=== PATIENT | female | born 1945 | race African-American/Black ===

== ENCOUNTER → 2017-11-19 | Outpatient (CLI) | payer MEDICARE ==
--- NOTE | 2017-11-19 12:34 | WOMENS IMAGING REPORT ---
EXAM DESCRIPTION: 3D SCREENING MAMMO BILAT COMPLETED DATE/TIME: 11/19/2017 10:08 am REASON FOR STUDY: ROUTINE SCREENING; Z12.31 Z12.31 ENCNTR SCREEN MAMMOGRAM FOR MALIGNANT NEOPLASM O F BRITTANEY COMPARISON: 2013 to 2015 TECHNIQUE: Standard craniocaudal and mediolateral oblique views of each breast recorded using digita l acquisition and breast tomosynthesis. LIMITATIONS: None. FINDINGS: No masses, calcifications or architectural distortion. No areas of suspicion. Read with the assistance of CAD. .[facility] - R2 Cenova Version 1.3 .[facility] - R2 Cenova Version 1.3 .[facility] - R2 Cenova Version 2.4 .[facility] - R2 Cenova Version 2.4 .[facility] - R2 Apparel Fashion Designer Version 9.2 IMPRESSION: NORMAL MAMMOGRAM. BIRADS 1. BREAST DENSITY: b. There are scattered areas of fibroglandular density. BIRAD: 1 NEGATIVE RECOMMENDATION: ROUTINE SCREENING COMMENT: The patient has been notified of the results by letter per SA requirements. Additional no tification policies are in place for contacting patient with suspicious or incomplete findings. Quality ID #[id number]: The [employer] recommends an annual screening mammogram for women aged 40 years or over. This facility utilizes a reminder system to ensure that all patients receive reminder letters, and/or direct phone calls for appointments. This includes reminders for routine scr eening mammograms, diagnostic mammograms, or other Breast Imaging Interventions when appropriate. Th is patient will be placed in the appropriate reminder system. The [employer] (ACR) has developed recommendations for screening MRI of the breast s in certain patient populations, to be used in conjunction with mammography. Breast MRI surveillanc e may be appropriate for women with more than 20% lifetime risk of developing breast cancer as deter mined by genetic testing, significant family history of the disease, or history of mantle radiation f or Hodgkins Disease. ACR Practice Guidelines 2008. DBT Technology DBT is a type of tomographic mammography. With conventional mammography, overlapping breast tissue ma y make lesions difficult to detect, even with good compression. DBT uses an x-ray tube that rotates a round the breast, taking images at different angles. These images are then combined to create thin sl ices of the breast that the radiologist can view as a 3D reconstruction. The [employer] unit can perform full-field digital mammograms (2D imaging); or DBT (3D imaging); or both, in a combination mode that quickly performs both the mammogram and the tomosynthesis scan while the breast is still compressed. PQRS 6045F: Fluoroscopic imaging is not utilized for breast tomosynthesis. TECHNICAL DOCUMENTATION: FINDING NUMBER: (1) ASSESSMENT: (1) JOB ID: [id number] [employer] - [employer]- All Rights Reserved
== END ==
LOC: WI 08:04
PROVIDERS: ATTEND Internal Medicine Geriatric Medicine
DX: Z12.31 Encounter for screening mammogram for malignant neoplasm of breast (principal)
CPT/HCPCS: 77063; G0202; 77067

== ENCOUNTER → 2018-12-05 | Outpatient (CLI) | payer MEDICARE, BC ==
--- NOTE | 2018-12-05 13:28 | WOMENS IMAGING REPORT ---
EXAM DESCRIPTION: 3D SCREENING MAMMO BILAT COMPLETED DATE/TIME: 12/05/2018 1:20 pm REASON FOR STUDY: ROUTINE BILATERAL SCREENING;Z12.31 Z12.31 ENCNTR SCREEN MAMMOGRAM FOR MALIGNANT N EOPLASM OF BRITTANEY COMPARISON: Multiple since 2013 TECHNIQUE: Standard craniocaudal and mediolateral oblique views of each breast recorded using digita l acquisition and breast tomosynthesis. LIMITATIONS: None. FINDINGS: No masses, calcifications or architectural distortion. No areas of suspicion. Read with the assistance of CAD. .[facility] - R2 Cenova Version 1.3 .[facility] Imaging - R2 Cenova Version 1.3 .[facility] - R2 Cenova Version 2.4 .[facility] [place] R2 Cenova Version 2.4 .[facility] - R2 Senior Automation Engineer Version 9.2 IMPRESSION: NORMAL MAMMOGRAM. BIRADS 1. BREAST DENSITY: b. There are scattered areas of fibroglandular density. BIRAD: 1 NEGATIVE RECOMMENDATION: ROUTINE SCREENING COMMENT: The patient has been notified of the results by letter per SA requirements. Additional no tification policies are in place for contacting patient with suspicious or incomplete findings. Quality ID #225: The [employer] recommends an annual screening mammogram for women aged 40 years or over. This facility utilizes a reminder system to ensure that all patients receive reminder letters, and/or direct phone calls for appointments. This includes reminders for routine scr eening mammograms, diagnostic mammograms, or other Breast Imaging Interventions when appropriate. Th is patient will be placed in the appropriate reminder system. The [employer] (ACR) has developed recommendations for screening MRI of the breast s in certain patient populations, to be used in conjunction with mammography. Breast MRI surveillanc e may be appropriate for women with more than 20% lifetime risk of developing breast cancer as deter mined by genetic testing, significant family history of the disease, or history of mantle radiation f or Hodgkins Disease. ACR Practice Guidelines 2008. DBT Technology DBT is a type of tomographic mammography. With conventional mammography, overlapping breast tissue ma y make lesions difficult to detect, even with good compression. DBT uses an x-ray tube that rotates a round the breast, taking images at different angles. These images are then combined to create thin sl ices of the breast that the radiologist can view as a 3D reconstruction. The [employer] unit can perform full-field digital mammograms (2D imaging); or DBT (3D imaging); or both, in a combination mode that quickly performs both the mammogram and the tomosynthesis scan while the breast is still compressed. PQRS 6045F: Fluoroscopic imaging is not utilized for breast tomosynthesis. TECHNICAL DOCUMENTATION: FINDING NUMBER: (1) ASSESSMENT: (1) JOB ID: [id number] [employer]- All Rights Reserved Reading location - IP/workstation name: [email or web address]
== END ==
LOC: WI 13:09
PROVIDERS: ATTEND Internal Medicine Geriatric Medicine
DX: Z12.31 Encounter for screening mammogram for malignant neoplasm of breast (principal)
CPT/HCPCS: 77063; 77067

== ENCOUNTER → 2020-01-11 | Outpatient (CLI) | payer MEDICARE, BC ==
--- NOTE | 2020-01-11 11:56 | WOMENS IMAGING REPORT ---
EXAM DESCRIPTION: 3D SCREENING MAMMO BILAT COMPLETED DATE/TIME: 01/11/2020 11:16 am REASON FOR STUDY: Z12.31 ENCOUNTER FOR SCREENING MAMMOGRAM FOR MALIGNANT NEOPLASM OF BREAST Z12.31 ENCNTR SCREEN MAMMOGRAM FOR MALIGNANT NEOPLASM OF BRITTANEY COMPARISON: 1016 TO 2019 EXAM PARAMETERS: Views: Standard craniocaudal and mediolateral oblique views of each breast recorded using digital acquisition and breast tomosynthesis. Read with the assistance of CAD. .[facility] - [employer] Manager Of Distribution Version 9.2 LIMITATIONS: None. FINDINGS: No suspicious masses, suspicious calcifications or architectural distortion. No areas of c oncern. IMPRESSION: NEGATIVE MAMMOGRAM. BIRADS 1. BREAST DENSITY: b. There are scattered areas of fibroglandular density. BIRAD: ASSESSMENT: 1 NEGATIVE RECOMMENDATION: ROUTINE SCREENING COMMENT: The patient has been notified of the results by letter per MQSA requirements. Additional no tification policies are in place for contacting patient with suspicious or incomplete findings. Quality ID #225: The [employer] recommends an annual screening mammogram for women aged 40 years or over. This facility utilizes a reminder system to ensure that all patients receive reminder letters, and/or direct phone calls for appointments. This includes reminders for routine scr eening mammograms, diagnostic mammograms, or other Breast Imaging Interventions when appropriate. Th is patient will be placed in the appropriate reminder system. TECHNICAL DOCUMENTATION: FINDING NUMBER: (1) ASSESSMENT: (1) JOB ID: [id number] 2010 [employer]- All Rights Reserved Reading location - IP/workstation name: [email or web address]
== END ==
LOC: WI 10:42
PROVIDERS: ATTEND Internal Medicine Geriatric Medicine
DX: Z12.31 Encounter for screening mammogram for malignant neoplasm of breast (principal)
CPT/HCPCS: 77063; 77067

== ENCOUNTER 2020-04-28 16:55 | Emergency (ER) | payer MEDICARE, BC ==
--- NOTE | 2020-04-28 18:08 | ER Document Report ---
HPI - HPI Patient complains to provider of: Yeast infection Time Seen by Provider: 04/28/20 17:14 Onset: Last week Onset/Duration: Persistent Quality of pain: Burning Pain Level: 2 Context: Patient complains of yeast infection to the perineum for the past week. Patient states she just finished a course of oral fluconazole for 5 days. Patient denies any improvement of her symptoms. Patient states she is diabetic and is compliant with her medications. Associated Symptoms: denies: Fever, Vomiting Exacerbated by: Movement Relieved by: Denies Similar symptoms previously: No Recently seen / treated by doctor: Yes - ROS ROS below otherwise negative: Yes Systems Reviewed and Negative: Yes All other systems reviewed and negative - CONSTITUTIONAL Constitutional: DENIES: Fever, Chills - NEURO Neurology: DENIES: Weakness - GASTROINTESTINAL Gastrointestinal: DENIES: Abdominal Pain, Nausea, Patient vomiting - DERM Skin Problems: Rash Past Medical History - General Information source: Patient - Social History Smoking Status: Former Smoker Frequency of alcohol use: None Drug Abuse: None Occupation: None Family History: Reviewed & Not Pertinent Patient has homicidal ideation: No - Past Medical History Cardiac Medical History: Reports: Hx Hypertension Endocrine Medical History: Reports: Hx Diabetes Mellitus Type 2 Past Surgical History: Reports: Hx Hysterectomy - partial - Immunizations Hx Diphtheria, Pertussis, Tetanus Vaccination: No Vertical Provider Document - CONSTITUTIONAL Agree With Documented VS: Yes Exam Limitations: No Limitations General Appearance: WD/WN, No Apparent Distress - INFECTION CONTROL TRAVEL OUTSIDE OF THE [place] IN LAST 30 DAYS: No - HEENT HEENT: Atraumatic, Normocephalic - NECK Neck: Normal Inspection, Supple - RESPIRATORY Respiratory: Breath Sounds Normal, No Respiratory Distress - CARDIOVASCULAR Cardiovascular: Regular Rate, Regular Rhythm - GI/ABDOMEN Gastrointestinal: Abdomen Soft, Abdomen Non-Tender, No Organomegaly - REPRODUCTIVE Female Genitalia: Abnormal Inspection - Patient with swelling to the vulva, skin mildly erythematous, areas of maceration to skin folds - BACK Back: Normal Inspection - MUSCULOSKELETAL/EXTREMETIES Musculoskeletal/Extremeties: EMELIA VILLAFUERTE - NEURO Level of Consciousness: Awake, Alert, Appropriate Motor/Sensory: No Motor Deficit - DERM Integumentary: Warm, Rash - Exudative, erythematous rash with areas of maceration to skin folds of perineum Course - Re-evaluation Re-evalutation: 04/28/20 Patient with yeast vaginitis. Discussed with patient importance of keeping area clean and dry. Patient also encouraged to obtain better control of her diab etes. Discussed diabetic diet. Patient encouraged to follow-up with her primary doctor tomorrow for recheck. Will place patient on a 2-week course of topical antifungal medication at this time. Good return precautions discussed with patient. - Vital Signs Vital signs: Temp Pulse Resp BP Pulse Ox 98.2 F 85 20 128/83 H 96 04/28/20 17:19 04/28/20 17:13 04/28/20 17:13 04/28/20 17:13 04/28/20 17:13 Discharge - Discharge Clinical Impression: Yeast vaginitis Condition: Stable Disposition: HOME, SELF-CARE Instructions: Vaginal Yeast Infection ([facility]) Additional Instructions: Return immediately for any new or worsening symptoms Followup with your primary care provider, call tomorrow to make a followup appointment Prescriptions: Clotrimazole 1 applic TOP DAILY #90 gm Referrals: IDAINA SHAW MD [Primary Care Provider] - Follow up tomorrow
[2020-04-28 18:15] VITALS: BP 127/86
== END 2020-04-28 18:20 | disposition home or self-care (01) ==
LOC: ER 16:55
DX: B37.3 Candidiasis of vulva and vagina (principal); I10 Essential (primary) hypertension; Z87.891 Personal history of nicotine dependence
CPT/HCPCS: 99283

== ENCOUNTER → 2020-06-12 | Outpatient (CLI) | payer BC, MEDICARE | LOC: WI 10:36 | PROVIDERS: ATTEND Nurse Practitioner Adult Health | DX: N63.20 Unspecified lump in the left breast, unspecified quadrant (principal) | CPT/HCPCS: 76642; 77065 ==

== ENCOUNTER → 2020-07-02 | Day surgery (SDC) | payer MEDICARE, BC ==
[~2020-07-02] MED LIST: LIDOCAINE 2% INJ (20 MG/ML) 20 ML MDV ONE
--- NOTE | 2020-07-11 10:04 | WOMENS IMAGING REPORT ---
EXAM DESCRIPTION: U/S BREAST BX IMAGES COMPLETED DATE/TIME: 07/10/2020 8:39 am REASON FOR STUDY: R92.8 OTH ABN AND INCONCLUSIVE FINDINGS ON DX IMAGING OF BREAST R92.8 OTH ABN AND INCONCLUSIVE FINDINGS ON DX IMAGING OF BRITTANEY COMPARISON: None. TECHNIQUE: The procedure was discussed with the patient and the patient agreed to proceed. The patient was scanned and the area of interest in the 7-8 o'clock position of the left breast was l ocalized. This correlates with the area of concern on prior imaging studies. This area was targeted for ultrasound-guided core biopsy. After sterile skin prep and 2.5 mL local lidocaine 1 % skin and deep tissue anesthesia, a 14 gauge co re biopsy needle was used to obtain several cores of tissue from the lesion. Under ultrasound guidan ce, a Barrel clip was placed in the areas sampled. There were no immediate post-procedure complicati ons. MAMMOGRAM: Post-procedure two view mammogram was not acquired due to equipment malfunction. No signif icant hematoma. Pathology yields a diagnosis of poorly differentiated carcinoma with differential metastatic lung, me tastatic thyroid, or rare breast primary. Final pathology is pending. Pathology is concordant. LIMITATIONS: None. FINDINGS: Ultrasound guided breast biopsy as described above. POST PROCEDURE MAMMOGRAMS FOR MARKER PLACEMENT: No IMPRESSION: ULTRASOUND-GUIDED CORE BIOPSY OF THE LEFT BREAST YIELDS A DIAGNOSIS OF POORLY DIFFERENTI ATED CARCINOMA. COMMENT: SURGICAL CONSULTATION IS RECOMMENDED. The findings were sent to the Radiology Results Communication Center at 09:56 on 07/11/2020 to be com municated to a licensed caregiver. COMMUNICATION: The patient's provider has been notified of the findings. The provider will discuss th e findings with the patient. Patient medication list reviewed: Yes- Quality ID# [id number]:Eligible professional attests to documenting i n the medical record they obtained, updated, or reviewed the patient's current medications. TECHNICAL DOCUMENTATION: JOB ID: [id number] 2010 [email or web address]- All Rights Reserved Reading location - IP/workstation name: [email or web address]
== END ==
LOC: WI 12:25
PROVIDERS: ATTEND Nurse Practitioner Adult Health
DX: C50.912 Malignant neoplasm of unspecified site of left female breast (principal); R92.8 Other abnormal and inconclusive findings on diagnostic imaging of breast
CPT/HCPCS: 88342 ×2; 88341 ×2; 88305 ×2; 19083; J3490

== ENCOUNTER → 2020-07-17 | Outpatient (CLI) | payer BC, MEDICARE | LOC: RAD 09:41 | PROVIDERS: ATTEND Internal Medicine | DX: N63.20 Unspecified lump in the left breast, unspecified quadrant (principal) | CPT/HCPCS: 82565; A9576; C8908; 77049 ==

== ENCOUNTER → 2020-07-26 | Outpatient (CLI) | payer MEDICARE ==
--- NOTE | 2020-07-27 11:38 | RADIOLOGY REPORT (SQ) ---
EXAM DESCRIPTION: CT CHEST WITH IMAGES COMPLETED DATE/TIME: 07/26/2020 3:35 pm REASON FOR STUDY: C50.312 MALIG NEOPLASM OF LOWER-INNER QUADRANT OF LEFT FEMALE BREAST C50.312 RACHEL G NEOPLASM OF LOWER-INNER QUADRANT OF LEFT FEMAL COMPARISON: Breast MRI 07/17/2020 TECHNIQUE: CT scan of the chest performed using helical scanning technique with dynamic intravenous contrast injection. Images reviewed with lung, soft tissue and bone windows. Reconstructed coronal and sagittal MPR and MIP images reviewed. All images stored on PACS. All CT scanners at this facility use dose modulation, iterative reconstruction, and/or weight based d osing when appropriate to reduce radiation dose to as low as reasonably achievable (ALARA). [facility]: Dose Right [facility]: CareDose [facility]: Dose Right [facility]: Teradose 4D [facility]: [employer] CONTRAST TYPE AND DOSE: contrast/concentration: Isovue 350.00 mmol/ml; Total Contrast Delivered: 79. 9 ml; Total Saline Delivered: 55.0 ml RENAL FUNCTION: Creatinine 0.7 RADIATION DOSE: CT Rad equipment meets quality standard of care and radiation dose reduction techniq ues were employed. CTDIvol: 11.6 mGy. DLP: 491 mGy-cm. . LIMITATIONS: None. FINDINGS: LUNGS AND PLEURA: No opacities, nodules, masses. No pneumothorax. No effusions. HILAR AND MEDIASTINAL STRUCTURES: No identified masses or abnormal nodes. HEART AND VASCULAR STRUCTURES: No aneurysm or dissection. No central pulmonary emboli. No pericardi al effusion. Aortic valve calcification. Prominent central pulmonary arteries HARDWARE: None in the chest. UPPER ABDOMEN: 13 mm nodule in the spleen axial image 59, may represent a small hemangioma. Small hi atal hernia THYROID AND OTHER SOFT TISSUES: No masses. No adenopathy. BONES: No significant finding. OTHER: 2.4 cm breast mass with clip along the medial aspect inframammary fold on coronal images 21-24 . IMPRESSION: Malignant left breast mass. Thyromegaly Otherwise unremarkable CT chest TECHNICAL DOCUMENTATION: JOB ID: [id number] Quality ID # [id number]: Final reports with documentation of one or more dose reduction techniques (e.g., Au tomated exposure control, adjustment of the mA and/or kV according to patient size, use of iterative reconstruction technique) 2010 [employer]- All Rights Reserved Reading location - IP/workstation name: [email or web address]
== END ==
LOC: RAD 14:03
PROVIDERS: ATTEND Internal Medicine
DX: C50.312 Malignant neoplasm of lower-inner quadrant of left female breast (principal); E01.0 Iodine-deficiency related diffuse (endemic) goiter
CPT/HCPCS: 71260

== ENCOUNTER 2020-08-28 10:06 | Day surgery (SDC) | payer MEDICARE, BC, OTHER ==
[2020-08-23 11:44] LABS: HEMATOCRIT 39.8 % (36.0-47.0); HEMOGLOBIN 13.6 g/dL (12.0-15.5); MEAN CORPUSCULAR HGB CONC 34.1 g/dL (32.0-36.0); MEAN CORPUSCULAR VOLUME 88 fl (80-97); PLATELET COUNT 254 10^3/uL (150-450); RED BLOOD COUNT 4.53 10^6/uL (3.72-5.28); RED CELL DISTRIBUTION WIDTH 13.1 % (11.5-14.0); WHITE BLOOD COUNT 5.8 10^3/uL (4.0-10.5)
[2020-08-23 11:54] LABS: ANION GAP 9 (5-19); BLOOD UREA NITROGEN 17 mg/dL (7-20); CALCIUM 9.8 mg/dL (8.4-10.2); CARBON DIOXIDE 28 mmol/L (22-30); CHLORIDE 100 mmol/L (98-107); GLUCOSE 341 mg/dL (75-110); POTASSIUM 4.5 mmol/L (3.6-5.0)
--- NOTE | 2020-08-23 21:17 | EKG REPORT ---
SEVERITY:- ABNORMAL ECG - SINUS RHYTHM FIRST DEGREE AV BLOCK PROBABLE LEFT ATRIAL ABNORMALITY LEFT ANTERIOR FASCICULAR BLOCK PROBABLE LEFT VENTRICULAR HYPERTROPHY CONSIDER ANTERIOR INFARCT : Confirmed by: Alina Patel MD 23-Aug-2020 21:16:52
[~2020-08-28 10:06] MED LIST changes: +LACTATED RINGERS 1000 ML IV PRN; +LIDOCAINE 0.5% INJ-PF (5 MG/ML) 50 ML SDV SUBCUT PRN; -LIDOCAINE 2% INJ (20 MG/ML) 20 ML MDV ONE
[2020-08-28] MEDS ORDERED: LIDOCAINE 4% CREAM 5 GM TUBE ONE (10:22)
[2020-08-28] MEDS ORDERED: METHYLENE BLUE 50 MG/10 ML AMPULE ONE (13:12)
[2020-08-28] MEDS ORDERED: LIDOCAINE 0.5%/EPINEPHRINE INJ 50 ML VIAL ONE ×2 (13:12→14:34)
[2020-08-28] MEDS ORDERED: DEXAMETHASONE SOD PHOSPHATE INJ 4 MG/1 ML VIAL ONE (14:23)
[2020-08-28] MEDS ORDERED: FENTANYL CITRATE INJ/PF 100 MCG/2 ML AMPUL ONE (14:23)
[2020-08-28] MEDS ORDERED: MIDAZOLAM 2 MG/2 ML INJ ONE (14:23)
[2020-08-28] MEDS ORDERED: ONDANSETRON HCL INJ/PF 4 MG/2 ML SDV ONE (14:23)
[2020-08-28] MEDS ORDERED: MORPHINE SULFATE 10 MG/ML INJ ONE (14:23)
[2020-08-28] MEDS ORDERED: PROPOFOL INJ 200 MG/20 ML VIAL IV ONE (14:24)
--- NOTE | 2020-08-28 14:46 | RADIOLOGY REPORT (SQ) ---
EXAM DESCRIPTION: NM LYMPHATICS/LYMPH GLANDS IMAGES COMPLETED DATE/TIME: 08/28/2020 1:59 pm REASON FOR STUDY: BREAST CANCER C50.912 MALIGNANT NEOPLASM OF UNSPECIFIED SITE OF LEFT FEMAL Z79.89 9 OTHER QUALITY ASSURANCE (CURRENT) DRUG THERAPY COMPARISON: None. RADIONUCLIDE AND DOSE: 618 microcuries TC-99m tilmanocept - [employer]. The route of agent administration: Subcutaneous in the skin. TECHNIQUE: The skin of the left breast was prepped in sterile fashion. The radiopharmaceutical was administered in equally divided doses in the periareolar breast. LIMITATIONS: None. FINDINGS: Images demonstrate activity at the injection site. IMPRESSION: ADMINISTRATION OF RADIOPHARMACEUTICAL FOR SENTINEL LYMPH NODE EVALUATION. TECHNICAL DOCUMENTATION: JOB ID: [id number] 2010 [employer]- All Rights Reserved Reading location - IP/workstation name: [email or web address]
[2020-08-28] MEDS ORDERED: CEFAZOLIN 2 GM/D5W RTU 2 GM/50 ML RTUPB IV ONE (14:51)
[2020-08-28] MEDS ORDERED: DIPHENHYDRAMINE HCL 50 MG/ML VIAL IV PRN (15:49)
[2020-08-28] MEDS ORDERED: FENTANYL CITRATE INJ/PF 100 MCG/2 ML AMPUL IV PRN ×3 (15:49)
[2020-08-28] MEDS ORDERED: PROMETHAZINE HCL INJ 25 MG/1 ML VIAL IV PRN ×2 (15:49)
[2020-08-28] MEDS ORDERED: OXYCODONE-ACETAMINOPHEN 5-325 MG TABLET PO PRN ×2 (15:49)
[2020-08-28] MEDS ORDERED: MEPERIDINE HCL/PF INJ 25 MG/1 ML DISP.SYRIN IV PRN (15:49)
[2020-08-28] MEDS ORDERED: HYDROMORPHONE HCL INJ/PF 2 MG/ML AMPULE IV PRN (15:50)
--- NOTE | 2020-08-28 16:58 | Operative Report ---
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 Simple left mastectomy with excision of inframammary crease tumor. 2. [place] lymph node biopsy left axilla x1. 3. Drainage of chest wall SURGEON: VALERIE AC ANESTHESIA: GA TISSUE REMOVED OR ALTERED: Left breast: Left sentinel lymph node COMPLICATIONS: None ESTIMATED BLOOD LOSS: 100 cc INTRAOPERATIVE FINDINGS: See below PROCEDURE: The patient was seen in the preop holding area, left breast marked, and at bedside neoprobe used to scan the left axilla. There was an area of increased activity in the low axilla consistent with successful sentinel lymph node mapping. The patient was taken to the main operating room and general anesthesia was induced initially via LMA, then this was switched over to an endotracheal tube. The left breast was now injected with 2 cc of methylene blue, full-strength, intradermally, at the 2 o'clock position of the areolar border. Left breast was massaged, then the left breast and axilla were prepped and draped sterile fashion. A repeat timeout and surgical plan discussed. The findings were significant for a 3+ centimeters tumor at the 730-8 o'clock position, left breast at the inframammary crease approximately 9 cm from the nipple. CT scan review preoperatively demonstrated the tumor principally in the chest wall, however not invading the fascia. Markings were made on the skin for a generous ellipse around the nipple, and a lower tour medially to encompass the skin overlying the tumor. The superior skin edge was incised with a #10 blade, and the superior skin flap elevated. This was somewhat challenging due to the patient's fibrofatty tissue. The skin flap was elevated laterally, and medially. The inferior portion of the ellipse was now incised, and the inferior skin flap taken up and over the serratus anterior muscle. The breast was now taken off of the chest wall including the pectoralis fascia, the parasternal fascia at the inferior medial most aspect of the dissection and the superficial fascia over the serratus anterior muscle inferiorly and laterally. Rest was removed from the chest wall, and skin for sentinel lymph node which was identified in the high tail [facility] region. It was blue and hot with an ex vivo count of 832. The specimen was marked with a long suture in the lateral position, short suture in the superior position. We intended to have the specimen evaluated by the pathologist to evaluate margin status but that did not happen. Therefore the specimen was placed in formalin and sent to pathology for permanent analysis We scan the axilla for any additional sentinel nodes and there were none. 2 large Tato drains were placed in the inferior lateral aspect of the inferior skin flap, secured to the skin with a 2-0 Prolene suture, trimmed to the appropriate length, and the medial drain placed over the chest wall and the lateral drain placed in the axilla. We brought the arm in from the extended position, and closed the mastectomy wound with multiple interrupted 2-0 Vicryl sutures, and then multiple running 2- 0 Vicryl sutures. Skin flaps remained viable throughout the closure. Skin closed finally with special skin glue. Patient tolerated the procedure well, extubated, taken to recovery room in stable condition.
--- NOTE | 2020-08-28 17:00 | Discharge Summary ---
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 Patient may shower, replace drain site gauze as needed. Patient to follow-up with Dr. Portillo, [facility] in 1 week. No heavy lifting pushing pulling or bending Prescriptions: Ketorolac Tromethamine [Toradol 10 mg Tablet] 10 mg PO Q6HP PRN #20 tablet PRN Reason: Referrals: IDANIA SHAW MD [Primary Care Provider] - Discharge Activity: No Lifting Over 10 Pounds, No Lifting/Push/Pulling Home Care Assistance: None Needed Report the Following to Your Physician Immediately: Shortness of Breath, Increase in Pain, Fever over 101 Degrees
[2020-08-28] MEDS ORDERED: OXYCODONE-ACETAMINOPHEN 5-325 MG TABLET ONE (17:31)
[2020-08-28 20:43] VITALS: BP 151/86
== END 2020-08-28 19:30 | disposition home or self-care (01) ==
LOC: OROUT 10:06
PROVIDERS: ATTEND Surgery
DX: C50.812 Malignant neoplasm of overlapping sites of left female breast (principal); C77.3 Secondary and unspecified malignant neoplasm of axilla and upper limb lymph nodes; E11.9 Type 2 diabetes mellitus without complications; Z86.73 Personal history of transient ischemic attack (TIA), and cerebral infarction without residual deficits; I10 Essential (primary) hypertension; E78.00 Pure hypercholesterolemia, unspecified; Z79.84 Long term (current) use of oral hypoglycemic drugs; Z79.899 Other long term (current) drug therapy; R41.3 Other amnesia; Z03.818 Encounter for observation for suspected exposure to other biological agents ruled out
CPT/HCPCS: 93005; 36415; 82962; 85027; 80048; 88307 ×2; 78195; 93010; 01610; 19303; 38500; U0003; A9520; J2250; J1100; J3010; J3490 ×2; J2270; A9270; J2405; J2704; J0690; Q9968; C9803; 1610; 87635; 88305; 88309; 88342

== ENCOUNTER 2020-09-18 12:00 | Day surgery (SDC) | payer MEDICARE, BC, OTHER ==
[2020-09-13 10:15] LABS: HEMATOCRIT 34.9 % (36.0-47.0); HEMOGLOBIN 12.1 g/dL (12.0-15.5); MEAN CORPUSCULAR HEMOGLOBIN 30.2 pg (27.0-33.4); MEAN CORPUSCULAR HGB CONC 34.6 g/dL (32.0-36.0); MEAN CORPUSCULAR VOLUME 87 fl (80-97); PLATELET COUNT 325 10^3/uL (150-450); WHITE BLOOD COUNT 6.9 10^3/uL (4.0-10.5)
[~2020-09-18 12:00] MED LIST changes: +ACETAMINOPHEN 325 MG TABLET PO PRN
[2020-09-18] MEDS ORDERED: CEFAZOLIN 1 GM/D5W RTU 1 GM/50 ML RTUPB IV ONE (12:34)
[2020-09-18] MEDS ORDERED: MIDAZOLAM 2 MG/2 ML INJ ONE (12:47)
[2020-09-18] MEDS ORDERED: FENTANYL CITRATE INJ/PF 100 MCG/2 ML AMPUL ONE (12:47)
[2020-09-18] MEDS ORDERED: PROPOFOL INJ 200 MG/20 ML VIAL IV ONE (12:47)
[2020-09-18] MEDS: CEFAZOLIN 1 GM/D5W RTU 1 GM/50 ML RTUPB IV PRN ×2 (13:00→15:10)
[2020-09-18] MEDS ORDERED: PROMETHAZINE HCL INJ 25 MG/1 ML VIAL IV PRN (13:45)
[2020-09-18] MEDS ORDERED: MEPERIDINE HCL/PF INJ 25 MG/1 ML DISP.SYRIN IV PRN (13:45)
[2020-09-18] MEDS ORDERED: MORPHINE SULFATE 10 MG/ML INJ IV PRN (13:45)
[2020-09-18] MEDS ORDERED: ONDANSETRON HCL INJ/PF 4 MG/2 ML SDV IV PRN (13:45)
[2020-09-18] MEDS ORDERED: FENTANYL CITRATE INJ/PF 100 MCG/2 ML AMPUL IV PRN ×3 (13:45)
[2020-09-18] MEDS ORDERED: DIPHENHYDRAMINE HCL 50 MG/ML VIAL IV PRN (13:45)
[2020-09-18] MEDS ORDERED: LIDOCAINE 1%/EPINEPHRINE INJ 20 ML VIAL ONE (14:53)
--- NOTE | 2020-09-18 15:57 | Discharge Summary ---
Discharge Summary (SDC) - Discharge Final Diagnosis: Metastatic breast cancer Date of Surgery: 09/18/20 Discharge Date: 09/18/20 Condition: Good Treatment or Instructions: May use port; may shower in 24 hours; resume preoperative medications, diet, activity including active range of motion of the left. May use home pain medication as needed; follow-up with Dr. Portillo in 2 weeks at [facility] Referrals: IDANIA SHAW MD [Primary Care Provider] - Discharge Diet: As Tolerated Discharge Activity: Activity As Tolerated, Other - Active range of motion of left arm-stretch it out ! Home Care Assistance: None Needed Report the Following to Your Physician Immediately: Shortness of Breath, Increase in Pain, Fever over 101 Degrees
--- NOTE | 2020-09-18 16:01 | Operative Report ---
Operative Report DATE OF SURGERY: 09/18/20 PREOPERATIVE DIAGNOSIS: Locally advanced left breast carcinoma POSTOPERATIVE DIAGNOSIS: Same OPERATION: 1. Ultrasound directed insertion of right internal jugular catheter. 2. Insertion of right subclavian single-chamber Jeborx-i-[id number]. 3. Interpretation of intraoperative fluoroscopy SURGEON: VALERIE AC ANESTHESIA: LMAC TISSUE REMOVED OR ALTERED: None COMPLICATIONS: None ESTIMATED BLOOD LOSS: Scant INTRAOPERATIVE FINDINGS: See below PROCEDURE: The patient was taken the preop holding area to the main operating room where LMAC anesthesia was induced. Arms were placed at the patient's side, tucked. The neck and chest wall were prepped and draped sterile fashion, with the head extended slightly, and the patient rotated to the left. Surgical plan and surgical timeout were conducted Markings were made on the skin for a right subclavian port chamber placement. Using ultrasound as a guide, the right internal jugular vein was localized, skin anesthetized 1% plain lidocaine, a radha made in the skin with 11 blade, and a micro needle and wire under fluoroscopic guidance were used to introduce the needle into the internal jugular vein, followed by the wire. Needle was removed. The right subclavian area was anesthetized with 1% plain lidocaine. A 3 cm incision was made with an knife, and a subcutaneous pocket developed large enough to accommodate a single-chamber port using blunt dissection. The catheter was then trimmed to the appropriate length, tunnel between the 2 incisions, hooked to the port and secured with the plastic ring. The port was tucked into the right subclavian pocket Under fluoroscopic guidance, real-time, the microneedle was switched over to a conventional 0.03 inch guidewire, then the 9 Sammarinese dilator introducer sheath threaded over the guidewire. Guidewire, leaving catheter in good position with the tip in the right atrium. There is no evidence of ectopy. There is no kinking of the catheter at the neck level. Catheter chamber was aspirated and flushed with heparinized saline. Hemostasis was excellent. Wounds closed with 3-0 Vicryl benzoin and Steri-Strips. Patient tolerated procedure well, taken to recovery room in stable condition.
[2020-09-18 19:10] VITALS: BP 138/79
--- NOTE | 2020-09-19 08:41 | RADIOLOGY REPORT (SQ) ---
EXAM DESCRIPTION: FLUORO/CV PLACEMENT IMAGES COMPLETED DATE/TIME: 09/18/2020 4:00 pm REASON FOR STUDY: PORT PLACEMENT C50.912 MALIGNANT NEOPLASM OF UNSPECIFIED SITE OF LEFT FEMAL COMPARISON: None. FLUOROSCOPY TIME: 0.1 minutes. 2 images saved to PACS. TECHNIQUE: Intra-operative images acquired during surgical procedure to evaluate progress. NUMBER OF IMAGES: 2 images. LIMITATIONS: None. FINDINGS: Images of the upper chest acquired during port placement. IMPRESSION: IMAGE(S) OBTAINED DURING PROCEDURE. COMMENT: Quality ID [id number]: Final reports for procedures using fluoroscopy that document radiation exp osure indices, or exposure time and number of fluorographic images (if radiation exposure indices are not available) Please consult full operative report of the attending physician for description of the procedure. TECHNICAL DOCUMENTATION: JOB ID: [id number] 2010 [employer]- All Rights Reserved Reading location - IP/workstation name: [email or web address]
== END 2020-09-18 17:35 | disposition home or self-care (01) ==
LOC: OROUT 12:00
PROVIDERS: ATTEND Surgery
DX: C50.912 Malignant neoplasm of unspecified site of left female breast (principal); C79.81 Secondary malignant neoplasm of breast; C77.9 Secondary and unspecified malignant neoplasm of lymph node, unspecified; Z17.1 Estrogen receptor negative status [ER-]; E11.9 Type 2 diabetes mellitus without complications; I10 Essential (primary) hypertension; R41.3 Other amnesia; E78.00 Pure hypercholesterolemia, unspecified; Z03.818 Encounter for observation for suspected exposure to other biological agents ruled out; Z90.12 Acquired absence of left breast and nipple; Z86.73 Personal history of transient ischemic attack (TIA), and cerebral infarction without residual deficits; Z79.899 Other long term (current) drug therapy; Z79.84 Long term (current) use of oral hypoglycemic drugs; Z79.82 Long term (current) use of aspirin; Z87.891 Personal history of nicotine dependence
CPT/HCPCS: 36561; C1788; 36415; 77001; 82962; 84132; 85027; 87635; C1752; C9803; J0690; J1642; J2250; J2704; J3010; J3490